=== PATIENT | male | born 1945 | race Caucasian/White ===

== ENCOUNTER 2025-08-17 15:04 | Inpatient (IN) | payer MEDICARE, OTHER ==
[~2025-08-17] VITALS: Ht 167.6 cm; Wt 104.8 kg
[2025-08-17 15:10] VITALS: O2SAT 99
[2025-08-17 16:56] LABS: TROPONIN I HIGH SENSITIVITY 21 ng/L (3.0-53)
[2025-08-17 16:57] LABS: CREATININE 2.1 mg/dL (0.6-1.3); UREA NITROGEN BLOOD 27 mg/dL (9-23)
[2025-08-17 16:59] LABS: ASPARTATE AMINOTRANSFERASE 23 IU/L (<34); BILIRUBIN DIRECT 0.3 mg/dL (<=3.0)
[2025-08-17 17:00] LABS: BILIRUBIN TOTAL 0.8 mg/dL (0.1-1.0); PROTEIN TOTAL 7.9 g/dL (6.0-8.3)
[2025-08-17 17:36] LABS: BASOPHILS % 0.8 % (0.0-2.0); EOSINOPHILS % 2.6 % (0.0-5.0); HEMATOCRIT. 46.8 % (42.0-52.0); HEMOGLOBIN. 14.9 g/dL (14.0-18.0); LYMPHOCYTES % 40.7 % (20.0-50.0); MEAN PLATELET VOLUME 9.1 fl (7.4-10.4); MONOCYTES % 10.0 % (2.0-8.0); NEUTROPHILS % 45.9 % (40.0-76.0); PLATELET 135 x1000/uL (130-400); RED BLOOD CELL COUNT 4.96 mill/uL (4.7-6.1); RED CELL DISTRIBUTION WIDTH 14.1 % (11.6-14.6)
[2025-08-17] MEDS: ONDANSETRON HCL 4MG/2ML INJ IV ONE (18:41)
[2025-08-17] MEDS: MORPHINE SULFATE 2 MG/ML INJ (NOT FOR IM USE) IV ONE (18:41)
[2025-08-17] MEDS: ASPIRIN 325MG EC TABLET PO ONE (18:41)
[2025-08-17 22:04] LABS: CLARITY URINE CLEAR (CLEAR); GLUCOSE URINE NEGATIVE (NEGATIVE); KETONES URINE TRACE (NEGATIVE); LEUKOCYTE ESTERASE URINE NEGATIVE (NEGATIVE); NITRITE URINE NEGATIVE (NEGATIVE); OCCULT BLOOD URINE NEGATIVE (NEGATIVE); PH URINE 5.5 (4.5-8.0); PROTEIN URINE TRACE (NEGATIVE); SPECIFIC GRAVITY URINE 1.017 (1.005-1.030); UROBILINOGEN URINE 0.2 E.U./dL (0.2-1.0)
[2025-08-17 22:48] LABS: COLOR URINE YELLOW (YELLOW)
[2025-08-17 22:49] LABS: WBC URINE 0-2 /hpf (0-2)
[2025-08-17 22:50] LABS: BACTERIA URINE NONE SEEN; COARSE GRANULAR CASTS URINE 0-5 /lpf; HYALINE CASTS URINE 0-5 /lpf; MUCUS URINE TRACE /lpf (NONE/TRACE); RBC URINE 0-2 /hpf (0-2); SQUAMOUS EPITHELIAL CELL URINE NONE SEEN /lpf (RARE/1+)
[2025-08-17] MEDS ORDERED: MAGNESIUM/ALUMINUM HYDROXIDE/SIMETHICONE 30ML UDC PO PRN (23:30)
[2025-08-17] MEDS ORDERED: HYDRALAZINE 20MG/ML VIAL IV PRN (23:30)
[2025-08-17] MEDS ORDERED: ONDANSETRON HCL 4MG/2ML INJ IV PRN (23:30)
[2025-08-17] MEDS ORDERED: ACETAMINOPHEN 325MG TABLET PO PRN ×2 (23:30)
[2025-08-17] MEDS ORDERED: CLONIDINE 0.1MG TABLET PO PRN (23:30)
[2025-08-17] MEDS ORDERED: DEXTROSE 50% WATER 50ML SYRINGE IV PRN (23:30)
[2025-08-17] MEDS ORDERED: IPRATROPIUM/ALBUTEROL 0.5-3(2.5)MG/3ML NEB HHN PRN (23:30)
[2025-08-18] MEDS: HYDROCODONE/ACETAMINOPHEN 5/325MG TABLET PO PRN (00:50)
[2025-08-18 02:30] LABS: TROPONIN I HIGH SENSITIVITY 5 ng/L (3.0-53)
[2025-08-18 02:31] LABS: ASPARTATE AMINOTRANSFERASE 22 IU/L (<34); BILIRUBIN DIRECT 0.1 mg/dL (<=3.0); BILIRUBIN TOTAL 0.2 mg/dL (0.1-1.0); PROTEIN TOTAL 8.2 g/dL (6.0-8.3)
[2025-08-18] MEDS ORDERED: EZET10TA81 PO (03:34)
[2025-08-18] MEDS ORDERED: RANO500T6 PO (03:34)
[2025-08-18] MEDS ORDERED: AMMO140C2 TP (03:34)
[2025-08-18] MEDS ORDERED: MELA3CAP2 PO (03:34)
[2025-08-18] MEDS ORDERED: CHOL400D2 PO (03:34)
[2025-08-18] MEDS ORDERED: BUME1TAB8 MT (03:34)
[2025-08-18] MEDS ORDERED: ALLO100T PO (03:34)
[2025-08-18] MEDS ORDERED: METO-411 PO (03:34)
[2025-08-18] MEDS ORDERED: HYDR113O TP (03:34)
[2025-08-18] MEDS ORDERED: ATOR-2 PO (03:34)
[2025-08-18] MEDS ORDERED: ACET-2708 PO (03:34)
[2025-08-18] MEDS ORDERED: ASPI-1497 PO (03:34)
[2025-08-18] MEDS ORDERED: DULO30CA52 PO (03:34)
[2025-08-18] MEDS ORDERED: VALS40TA11 PO (03:34)
[2025-08-18 03:40] VITALS: BP 105/62; PULSE 51; RESP 18; TEMP 36.14
[2025-08-18 07:13] LABS: *AMPHETAMINES SCREEN URINE NEGATIVE (NEGATIVE); *BARBITURATES SCREEN URINE NEGATIVE (NEGATIVE); *BENZODIAZEPINES SCREEN URINE NEGATIVE (NEGATIVE); *COCAINE SCREEN URINE NEGATIVE (NEGATIVE)
[2025-08-18 07:14] LABS: CANNABINOID URINE SCREEN NEGATIVE (NEGATIVE); ECSTASY MDMA SCREEN URINE NEGATIVE (NEGATIVE); METHADONE URINE SCREEN NEGATIVE (NEGATIVE); OPIATES URINE SCREEN PRESUMPTIVE POSITIVE (NEGATIVE); PHENCYCLIDINE URINE SCREEN NEGATIVE (NEGATIVE)
[2025-08-18] MEDS: INSULIN LISPRO 100 UNITS/ML SUBCUT SCH (07:40)
[2025-08-18] MEDS: BLOOD SUGAR DIAGNOSTIC STRIP TEST SCH (07:40)
[2025-08-18 08:00] VITALS: BP 113/65; PULSE 56; RESP 17; TEMP 35.6; O2SAT 97
[2025-08-18 08:15] LABS: BASOPHILS % 0.4 % (0.0-2.0); EOSINOPHILS % 2.6 % (0.0-5.0); HEMATOCRIT. 45.2 % (42.0-52.0); HEMOGLOBIN. 14.7 g/dL (14.0-18.0); LYMPHOCYTES % 52.2 % (20.0-50.0); MEAN PLATELET VOLUME 9.0 fl (7.4-10.4); MONOCYTES % 8.8 % (2.0-8.0); NEUTROPHILS % 36.0 % (40.0-76.0); PLATELET 122 x1000/uL (130-400); RED BLOOD CELL COUNT 4.79 mill/uL (4.7-6.1); RED CELL DISTRIBUTION WIDTH 14.4 % (11.6-14.6)
[2025-08-18 08:28] LABS: TRIGLYCERIDE 117 mg/dL (0-150)
[2025-08-18 08:29] LABS: CREATININE 2.4 mg/dL (0.6-1.3)
[2025-08-18 08:30] LABS: LDL CHOLESTEROL 42 mg/dL (5-100); UREA NITROGEN BLOOD 34 mg/dL (9-23)
[2025-08-18 08:31] LABS: ASPARTATE AMINOTRANSFERASE 34 IU/L (<34); T4 FREE 1.41 ng/dL (0.89-1.76)
[2025-08-18 08:32] LABS: BILIRUBIN DIRECT 0.2 mg/dL (<=3.0); BILIRUBIN TOTAL 0.7 mg/dL (0.1-1.0); PROTEIN TOTAL 6.6 g/dL (6.0-8.3)
[2025-08-18] MEDS: MULTIVITAMINS,THER W-MINERALS TABLET PO SCH (08:54)
[2025-08-18] MEDS: ENOXAPARIN 30MG/0.3ML SYR SUBCUT SCH (08:56)
[2025-08-18] MEDS: SODIUM POLYSTYRENE SULFONATE 15 G/60 ML BOT PO NR (10:00)
[2025-08-18 12:00] VITALS: BP 101/62; PULSE 58; RESP 17; TEMP 35.7; O2SAT 97
[2025-08-18] MEDS: ASPIRIN 81MG TABLET PO SCH (15:31)
[2025-08-18 16:00] VITALS: BP 128/61; PULSE 58; RESP 17; TEMP 36; O2SAT 97
[2025-08-18] MEDS: NITROGLYCERIN 0.4MG TABLET SL SL PRN (17:46)
[2025-08-18 20:00] VITALS: BP 99/61; PULSE 60; RESP 20; TEMP 36.5
[2025-08-18] MEDS: ATORVASTATIN CALCIUM 40MG TABLET PO SCH (20:58)
[2025-08-18] MEDS: MELATONIN 3MG TABLET PO SCH (22:57)
[2025-08-19] VITALS: RESP 20
[2025-08-19 00:01] VITALS: BP 109/54; PULSE 71; RESP 20; TEMP 36.3; O2SAT 97
[2025-08-19 04:00] VITALS: BP 115/58; PULSE 60; RESP 18; TEMP 36.5; O2SAT 100
[2025-08-19 06:09] LABS: BASOPHILS % 0.3 % (0.0-2.0); EOSINOPHILS % 2.4 % (0.0-5.0); HEMATOCRIT. 39.8 % (42.0-52.0); HEMOGLOBIN. 13.0 g/dL (14.0-18.0); LYMPHOCYTES % 47.9 % (20.0-50.0); MEAN PLATELET VOLUME 9.2 fl (7.4-10.4); MONOCYTES % 10.0 % (2.0-8.0); NEUTROPHILS % 39.4 % (40.0-76.0); PLATELET 97 x1000/uL (130-400); RED BLOOD CELL COUNT 4.25 mill/uL (4.7-6.1); RED CELL DISTRIBUTION WIDTH 14.1 % (11.6-14.6)
[2025-08-19 06:17] LABS: CREATININE 2.0 mg/dL (0.6-1.3)
[2025-08-19 06:19] LABS: UREA NITROGEN BLOOD 31 mg/dL (9-23)
[2025-08-19 06:21] LABS: PHOSPHORUS 4.4 mg/dL (2.5-4.9)
[2025-08-19 08:00] VITALS: BP 117/51; PULSE 65; RESP 17; TEMP 35.7; O2SAT 100
[2025-08-19 12:00] VITALS: BP 105/41; PULSE 81; RESP 17; TEMP 35.7; O2SAT 96
[2025-08-19 12:39] VITALS: BP 105/41; PULSE 81; RESP 17; TEMP 96.2
[2025-08-19] MEDS ORDERED: MELATONIN 3MG TABLET PO SCH (21:00)
== END 2025-08-19 12:30 | disposition home or self-care (01) | DRG 206 ==
LOC: ER 15:04 → EDBEDREQTM 21:47 → EDBEDREQ 21:47 → 6WST 23:32 → EDBEDREQTM 23:34 → ENRESERV 23:48
PROVIDERS: ADMIT Student in an Organized Health Care Education/Training Program; ATTEND Student in an Organized Health Care Education/Training Program
PROC: 5A09357 Assistance with Respiratory Ventilation, Less than 24 Consecutive Hours, Continuous Positive Airway Pressure (ICD-10-PCS; principal; 2025-08-19)
DX: R09.02 Hypoxemia (principal); E11.9 Type 2 diabetes mellitus without complications; I10 Essential (primary) hypertension; R00.1 Bradycardia, unspecified; Z95.1 Presence of aortocoronary bypass graft; E78.5 Hyperlipidemia, unspecified; I25.2 Old myocardial infarction; Z95.810 Presence of automatic (implantable) cardiac defibrillator
CPT/HCPCS: 36415; 71045; 80048; 80061; 80076; 80305; 81003; 82962; 83036; 83735; 83880; 84100; 84439; 84443; 84484; 85025; 93005; 93306; 94660; 94664; 99285; J1650; J2270; J2405